=== PATIENT | female | born 1930 | race Caucasian/White ===

== ENCOUNTER → 2017-01-26 | Outpatient (CLI) | payer MEDICARE ==
[~2017-01-26] MED LIST: CATHETER FLUSH 10 ML SYR IV PRN; IOHEXOL 350 MG/ML 100 ML (OMNIPAQUE 350) VIAL IV ONE; NS 100 ML (IVPB) BAG IV ONE
[2017-01-26 10:27] LABS: MEAN PLATELET VOLUME 9.5 FL (7.4-10.4); RED BLOOD COUNT 4.49 10^6/uL (4.35-5.85); RED CELL DISTRIBUTION WIDTH 12.9 % (10.0-14.5)
[2017-01-26 10:44] LABS: ALANINE AMINOTRANSFERASE 17 U/L (0-55); ALBUMIN 4.1 GM/DL (3.2-4.5); ANION GAP 11 MMOL/L (5-14); ASPARTATE AMINO TRANSFERASE 18 U/L (5-34); BILIRUBIN,TOTAL 0.2 MG/DL (0.1-1.0); BLOOD UREA NITROGEN 20 MG/DL (7-18); BUN/CREATININE RATIO 27; CALCIUM 9.7 MG/DL (8.5-10.1); CARBON DIOXIDE 24 MMOL/L (21-32); CHLORIDE 96 MMOL/L (98-107); CREATININE SERUM 0.74 MG/DL (0.60-1.30); GFR ESTIMATED > 60; GLUCOSE 303 MG/DL (70-105); POTASSIUM 4.3 MMOL/L (3.6-5.0); SODIUM 131 MMOL/L (135-145); TOTAL PROTEIN 7.8 GM/DL (6.4-8.2)
--- NOTE | 2017-01-26 13:35 | Diagnostic Imaging Report ---
PROCEDURE: CT abdomen and pelvis with contrast. TECHNIQUE: Multiple contiguous axial images were obtained through the abdomen and pelvis after administration of intravenous contrast. INDICATION: Abdominal pain. COMPARISON: None. FINDINGS: A large cystic mass with thick freire seen in the left mid abdomen measuring approximately 9 x 11 cm. There are a few septations present. There is some soft tissue thickening of the pancreatic tail. The enhancement pattern of the remainder of the visualized pancreas is unremarkable. No obvious mass is seen. There is some prominence of the common bile duct and pancreatic duct. The gallbladder appears unremarkable. Differential considerations or pancreatic pseudocyst, mesenteric cyst or cystic neoplasm of the pancreas. The liver, spleen, adrenal glands, kidneys, vascular structures and bowel are unremarkable. There is no free air or free fluid. There is diverticulosis of the sigmoid colon without diverticulitis. No abscess is seen. Distal ureters and urinary bladder are normal. Osseous structures are age-appropriate. IMPRESSION: 1. Cystic mass in the left mid abdomen, possibly a pancreatic pseudocyst, pancreatic cystic neoplasm is not excluded. This is less likely felt to be a foregut duplication cyst. 2. Diverticulosis of the sigmoid colon without diverticulitis. 3. Prominent pancreatic and common bile duct without obvious choledocholithiasis. Dictated by: Dictated on workstation # [id number]
[2017-01-26 14:50] LABS: AMYLASE 99 U/L (25-125); LIPASE 58 U/L (8-78)
== END ==
LOC: RAD 10:12
PROVIDERS: ATTEND Nurse Practitioner Family
DX: R19.09 Other intra-abdominal and pelvic swelling, mass and lump (principal); K57.30 Diverticulosis of large intestine without perforation or abscess without bleeding; K83.8 Other specified diseases of biliary tract
CPT/HCPCS: 36415; 74177; 80053; 82150; 83690; 85027

== ENCOUNTER → 2017-02-01 | Outpatient (CLI) | payer MEDICARE ==
--- NOTE | 2017-02-01 13:50 | Diagnostic Imaging Report ---
PROCEDURE: US Gallbladder. TECHNIQUE: Multiple real-time grayscale images were obtained over the right upper quadrant in various projections. INDICATION: Abdominal pain. FINDINGS: There are no previous ultrasound examinations available for comparison. There is no evidence for cholelithiasis or acute cholecystitis, but the common bile duct is dilated measuring 13 mm (normal 9 mm or less). On the recent CT abdomen/pelvis exam of 01/26/2017, the common bile duct also appeared to be slightly dilated measuring roughly 10.1 mm. There was no sign of choledocholithiasis on the CT exam and there is no evidence for a calculus within the common bile duct on this exam either. If further evaluation of the common bile duct is desired, then MRCP will be recommended. There are two small 4 mm defects within the gallbladder. Most likely these are polyps. The liver and right kidney are unremarkable. As noted on the previous CT exam, there is a large cystic mass arising from the body/tail of the pancreas. This measures 9.5 x 12.3 x 13.1 cm. This cystic mass contains a few uniform internal echoes. There is also suggestion of a small solid component. No other abnormality of the abdomen is noted. IMPRESSION: 1. There is no evidence for cholelithiasis or acute cholecystitis, but the common bile duct is dilated. Recommendations as above. 2. There do appear to be two small polyps within the gallbladder. 3. The large cystic mass associated with the body/tail of the pancreas seen previously is again evident. Whether this is a long-standing pancreatic pseudocyst or less likely a cystic pancreatic neoplasm is unclear. This finding could also be further evaluated by MRI. Dictated by: Dictated on workstation # [id number]
== END ==
LOC: RAD 07:41
PROVIDERS: ATTEND Surgery
DX: R10.11 Right upper quadrant pain (principal)
CPT/HCPCS: 76705